=== PATIENT | male | born 1960 | race Caucasian/White ===

== ENCOUNTER 2017-07-24 18:27 | Emergency (ER) | payer OTHER ==
[2017-07-24 18:38] VITALS: BP 129/87
[2017-07-24] MEDS ORDERED: cefTRIAXone(*) 1 GM in NS 0.9% 50 ML* 50 ML IVPB ONE (19:27)
[2017-07-24] MEDS ORDERED: cefTRIAXone VIAL(*) 1,000 MG VIAL IM ONE (19:41)
[2017-07-24] MEDS ORDERED: Lidocaine 1% MPF* 2 ML VIAL ONE (19:45)
--- NOTE | 2017-07-24 19:59 | UC ---
Skin Complaint HPI - HPI Summary HPI Summary: Patient is a 56-year-old homeless male presenting to the with a chief complaint of likely a spider bite to the right inner thigh. The area is approximately 14 cm x 10 cm to the right inner upper thigh with a central indurated erythematous raised macule with a rough surface approximately 7 cm x 3 cm. This resembles a spider bite. The macula surrounded by erythema and warmth. Denies any fevers, sweats, chills. Denies any other lyme symptoms. - History of Current Complaint Chief Complaint: UCLowerExtremity Time Seen by Provider: 07/24/17 18:43 Stated Complaint: SPIDER BITE, AND SKIN FOOT DAMAGE Hx Obtained From: Patient Onset/Duration: Sudden Onset Skin Exposure Onset/Duration: Hours Ago Timing: Constant Onset Severity: Moderate Current Severity: Moderate Pain Intensity: 8 Pain Scale Used: 0-10 Numeric Location: Discrete - right inner thigh Character: Pain Aggravating Factor(s): Nothing Alleviating Factor(s): Nothing Associated Signs & Symptoms: Positive: Negative Related History: Insect Bite/Sting - Allergy/Home Medications Allergies/Adverse Reactions: Allergies Allergy/AdvReac Type Severity Reaction Status Date / Time No Known Allergies Allergy Verified 07/24/17 18:39 Review of Systems Constitutional: Negative Skin: Rash Respiratory: Negative Cardiovascular: Negative Neurovascular: Negative Musculoskeletal: Negative Neurological: Negative Psychological: Negative Is Patient Immunocompromised?: No All Other Systems Reviewed And Are Negative: Yes PMH/Surg Hx/FS Hx/Imm Hx Previously Healthy: Yes - Surgical History Surgical History: Yes Surgery Procedure, Year, and Place: Rt KNEE-MMT; Lt ELBOW-REMOVAL OF CARTILAGE - Family History Known Family History: Positive: Unknown - Social History Occupation: Unemployed Lives: Alone - homeless Alcohol Use: Occasionally Substance Use Type: Marijuana, Prescribed, Sedatives Smoking Status (MU): Light Every Day Tobacco Smoker Physical Exam Triage Information Reviewed: Yes Appearance: Well-Appearing, No Pain Distress, Well-Nourished Vital Signs: Initial Vital Signs Temp 98.7 F 07/24/17 18:34 Pulse 82 07/24/17 18:34 Resp 18 07/24/17 18:34 BP 129/87 07/24/17 18:34 Pulse Ox 100 07/24/17 18:34 Vital Signs Reviewed: Yes Neck exam: Normal Neck: Positive: Supple, No Lymphadenopathy Respiratory Exam: Normal Respiratory: Positive: Chest non-tender Cardiovascular Exam: Normal Psychological: Positive: Normal Response To Family Skin: Positive: rashes - Right inferior Course/Dx - Course Course Of Treatment: The patient is evaluated for large cellulitis to the right upper thigh with a central raised erythematous macule resembling a spider bite versus cellulitis versus other etiology. Patient is homeless. He is given 1 g Rocephin IM in UC and Keflex 4 times daily prescribed. - Diagnoses Provider Diagnoses: Spider Bite; Cellulitis Discharge - Sign-Out/Discharge Documenting (check all that apply): Discharge/Admit/Transfer - Discharge Plan Condition: Stable Disposition: HOME Prescriptions: Cephalexin CAP* [Keflex CAP*] 500 mg PO QID #28 cap MDD 4 Patient Education Materials: Insect Bite or Sting (ED) Referrals: Jerman Moeller MD [Primary Care Provider] - Additional Instructions: Keflex four times daily x 7 days Please follow up with PCP for any worsening or changing symptoms - Billing Disposition and Condition Condition: STABLE Disposition: HOME
[2017-07-24] MEDS ORDERED: Lidocaine 1% MPF* 2 ML VIAL INJ ONE (20:00)
== END 2017-07-24 20:13 | disposition home or self-care (01) ==
LOC: UCEAST 18:27
DX: L03.115 Cellulitis of right lower limb (principal); T63.301A Toxic effect of unspecified spider venom, accidental (unintentional), initial encounter; Y92.9 Unspecified place or not applicable; F12.90 Cannabis use, unspecified, uncomplicated; F17.210 Nicotine dependence, cigarettes, uncomplicated; Z59.0 Homelessness
CPT/HCPCS: 96372; 99212; G0463; J0696